=== PATIENT | female | born 1995 | race Two or more races ===

== ENCOUNTER → 2023-12-11 | Outpatient (CLI) | payer MEDICAID, OTHER | LOC: M WHC 08:48 | PROVIDERS: ATTEND Family Medicine | DX: N64.4 Mastodynia (principal) ==

== ENCOUNTER → 2025-03-26 | Outpatient (REF) | payer OTHER ==
[2025-03-26 18:35] LABS: APPEARANCE, URINE CLEAR (CLEAR); BACTERIA, URINE AUTO NEGATIVE (NEGATIVE); BILIRUBIN, URINE AUTO NEGATIVE (NEGATIVE); BLOOD, URINE BLOOD 1+ (NEGATIVE); GLUCOSE, URINE (UA) AUTO NEGATIVE (NEGATIVE); KETONE, URINE AUTO NEGATIVE (NEGATIVE); LEUKOCYTE ESTERASE, URINE AUTO NEGATIVE (NEGATIVE); MUCUS, URINE SMALL (NEGATIVE); NITRITE, URINE AUTO NEGATIVE (NEGATIVE); PROTEIN, URINE AUTO 1+ mg/dL (NEGATIVE); RBC, URINE AUTO 1 /HPF (0-3); SPECIFIC GRAVITY URINE AUTO 1.012 (1.002-1.035); SQUAMOUS EPITHELIAL CELL UR AU 3 /HPF (0-6); UROBILINOGEN, URINE AUTO 0.2 mg/dL (0.0-2.0); WBC, URINE AUTO 11 /HPF (0-3)
== END ==
LOC: M SMT 17:08
PROVIDERS: ATTEND Nurse Practitioner Family
DX: N13.30 Unspecified hydronephrosis (principal)

== ENCOUNTER → 2025-04-09 | Outpatient (CLI) | payer OTHER ==
[~2025-04-09] MED LIST: IBUP600T42 PO
[2025-04-09 18:23] LABS: LUTEINIZING HORMONE 7.0 mIU/ML; PROLACTIN 3.47 NG/ML
[2025-04-09 18:24] LABS: FREE T4 1.26 NG/DL (0.89-1.76); PROGESTERONE 0.22 NG/ML
== END ==
LOC: M PLALAB 15:52
PROVIDERS: ATTEND Specialist
DX: N92.6 Irregular menstruation, unspecified (principal)

== ENCOUNTER → 2025-04-27 | Outpatient (REF) | payer OTHER ==
[2025-04-27 15:40] LABS: APPEARANCE, URINE HAZY (CLEAR); BACTERIA, URINE AUTO NEGATIVE (NEGATIVE); BILIRUBIN, URINE AUTO NEGATIVE (NEGATIVE); BLOOD, URINE BLOOD 3+ (NEGATIVE); GLUCOSE, URINE (UA) AUTO NEGATIVE (NEGATIVE); KETONE, URINE AUTO NEGATIVE (NEGATIVE); LEUKOCYTE ESTERASE, URINE AUTO 1+ (NEGATIVE); MUCUS, URINE SMALL (NEGATIVE); NITRITE, URINE AUTO NEGATIVE (NEGATIVE); PROTEIN, URINE AUTO NEGATIVE (NEGATIVE); RBC, URINE AUTO TNTC /HPF (0-3); SPECIFIC GRAVITY URINE AUTO 1.013 (1.002-1.035); SQUAMOUS EPITHELIAL CELL UR AU 5 /HPF (0-6); UROBILINOGEN, URINE AUTO 0.2 mg/dL (0.0-2.0); WBC, URINE AUTO 17 /HPF (0-3)
== END ==
LOC: M SMT 15:13
PROVIDERS: ATTEND Nurse Practitioner Family
DX: N39.0 Urinary tract infection, site not specified (principal)

== ENCOUNTER → 2025-05-14 | Outpatient (CLI) | payer OTHER | LOC: MERGE 04-12 13:30 → M RAD 14:35 | PROVIDERS: ATTEND Nurse Practitioner Family | DX: N13.30 Unspecified hydronephrosis (principal); D25.9 Leiomyoma of uterus, unspecified ==